=== PATIENT | female | born 2005 | race African-American/Black ===

== ENCOUNTER 2024-02-06 09:48 | Emergency (ER) | payer OTHER ==
--- NOTE | 2024-02-06 11:15 | CT Report ---
PROCEDURE: Head WO INDICATIONS: fall, head injury TECHNIQUE: Noncontrast 4.5 mm thick angled axial sections acquired from the foramen magnum to the vertex. For r adiation dose reduction, the following was used: automated exposure control, adjustment of mA and/or kV according to patient size. COMPARISON: None. FINDINGS: Image quality: Excellent. CSF spaces: Basal cisterns are patent. No extra-axial fluid collections. Ventricles are normal in size and shape. Brain: No midline shift. No intracranial masses or hemorrhage. Munguia-white matter interface is norm al. Skull and face: Calvarium and visualized facial bones are intact, without suspicious lesions. Sinuses: Visualized sinuses and mastoids are clear. IMPRESSION: No acute intracranial pathology. Reviewed by: Familia Robles MD on 02/06/2024 11:14 AM PDT Approved by: Familia Robles MD on 02/06/2024 11:14 AM PDT Station ID: [id number]
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
[2024-02-06 12:03] VITALS: BP 129/69; O2SAT 99
== END 2024-02-06 11:52 | disposition home or self-care (01) ==
LOC: ED 09:48
DX: S09.90XA Unspecified injury of head, initial encounter (principal); V00.121A Fall from non-in-line roller-skates, initial encounter; Y93.51 Activity, roller skating (inline) and skateboarding
CPT/HCPCS: 99284